=== PATIENT | male | born 1945 | race African-American/Black ===

== ENCOUNTER 2018-05-05 17:57 | Emergency (ER) | payer MEDICARE ==
--- NOTE | 2018-05-05 18:22 | Emergency Department Report ---
ED Trauma HPI - General Chief Complaint: Multiple Trauma Stated Complaint: RT ARM PAIN/FALL OUT TREE Time Seen by Provider: 05/05/18 18:10 Source: patient Exam Limitations: no limitations - History of Present Illness Initial Comments: Patient is 72-year-old male that presents emergency room with complaints of a fall from 12 feet off a ladder. Patient states he lost consciousness for approximately 1 minute. Son is at bedside and confirms the positive LOC. Patient complains of shortness of breath, Abdominal pain, right shoulder pain, right arm pain, right wrist pain, left forearm pain. Patient states the pain is a 78 out of 10. Patient states the pain is better with worse and worse with movement. Patient is ambulatory to the ER. Patient came by POV and ambulated without problems into the emergency room. Patient denies symptoms prior to fall patient just slipped off ladder Occurred: just prior to arrival Severity: severe Pain Location: chest, abdomen, upper extremity Method of Injury: fall Modifying Factors: improves with: movement, rest Loss of Consciousness: brief (seconds) Associated Symptoms (Fall): abdominal pain, shortness of breath, other. denies : chest pain, confusion, dizziness, headache, lightheadedness, muscle spasms, nausea/vomiting, neck pain, ringing in ears, seizures, slurred speech, trouble walking, vision changes Allergies/Adverse Reactions: Allergies penicillin V Allergy (Verified 06/12/16 09:47) Shortness of Breath Home Medications: Ambulatory Orders Acyclovir [Zovirax Tab] 800 mg PO QID #40 tab 06/12/16 Cetirizine HCl [ZyrTEC] 10 mg PO DAILY #15 capsule 06/12/16 predniSONE [Deltasone] 20 mg PO QDAY #5 tab 06/12/16 HYDROcodone/APAP 5-325 [[place] 5-325 mg TAB] 1 each PO Q6HR PRN #15 tablet ED Review of Systems ROS: Stated complaint: RT ARM PAIN/FALL OUT TREE Other details as noted in HPI Constitutional: denies: chills, fever Eyes: denies: eye pain, eye discharge, vision change ENT: denies: ear pain, throat pain Respiratory: shortness of breath. denies: cough, wheezing Cardiovascular: denies: chest pain, palpitations Endocrine: no symptoms reported Gastrointestinal: abdominal pain. denies: nausea, diarrhea Genitourinary: denies: urgency, dysuria Musculoskeletal: denies: back pain, joint swelling, arthralgia Skin: denies: rash, lesions Neurological: denies: headache, weakness, paresthesias Psychiatric: denies: anxiety, depression Hematological/Lymphatic: denies: easy bleeding, easy bruising ED Past Medical Hx - Past Medical History Previous Medical History?: Yes Hx Hypertension: Yes - Surgical History Past Surgical History?: No - Family History Family history: no significant - Social History Smoking Status: Never Smoker Substance Use Type: None - Medications Home Medications: Home Medications Medication Instructions Recorded Confirmed Last Taken Type Acyclovir [Zovirax Tab] 800 mg PO QID #40 tab 06/12/16 Unknown Rx Cetirizine HCl [ZyrTEC] 10 mg PO DAILY #15 capsule 06/12/16 Unknown Rx predniSONE [Deltasone] 20 mg PO QDAY #5 tab 06/12/16 Unknown Rx HYDROcodone/APAP 5-325 [[place] 1 each PO Q6HR PRN #15 tablet 05/05/18 Unknown Rx 5-325 mg TAB] ED Physical Exam - General Limitations: Language Barrier General appearance: alert, in no apparent distress - Head Head exam: Present: atraumatic, normocephalic - Eye Eye exam: Present: normal appearance, PERRL, EOMI Pupils: Present: normal accommodation - ENT ENT exam: Present: mucous membranes moist - Neck Neck exam: Present: normal inspection, tenderness (tenderness noted on neck exam and patient was placed in a c-collar,) - Respiratory Respiratory exam: Present: normal lung sounds bilaterally. Absent: respiratory distress - Cardiovascular Cardiovascular Exam: Present: regular rate, normal rhythm. Absent: systolic murmur, diastolic murmur, rubs, gallop - GI/Abdominal GI/Abdominal exam: Present: soft, tenderness (left upper quadrant tenderness to palpation), normal bowel sounds - Rectal Rectal exam: Present: deferred - Extremities Exam Extremities exam: Present: tenderness (2 right wrist, right shoulder and left forearm) - Back Exam Back exam: Present: normal inspection - Neurological Exam Neurological exam: Present: alert, oriented X3 - Psychiatric Psychiatric exam: Present: normal affect, normal mood - Skin Skin exam: Present: warm, dry, normal color, abrasion (multiple abrasions noted. Abrasions noted on left abdomen and bilateral forearms). Absent: rash ED Course Vital Signs 05/05/18 05/05/18 05/05/18 18:03 18:15 18:30 Temperature 98 F Pulse Rate 69 86 90 Respiratory 18 18 22 Rate Blood Pressure 161/71 Blood Pressure 178/83 173/87 [Left] O2 Sat by Pulse 97 97 97 Oximetry 05/05/18 05/05/18 05/05/18 19:27 19:30 19:46 Temperature Pulse Rate 66 66 71 Respiratory 15 16 18 Rate Blood Pressure 183/78 183/78 165/82 Blood Pressure [Left] O2 Sat by Pulse 95 95 95 Oximetry 05/05/18 05/05/18 05/05/18 20:00 20:16 20:30 Temperature Pulse Rate 68 67 66 Respiratory 16 15 17 Rate Blood Pressure 165/82 171/87 171/87 Blood Pressure [Left] O2 Sat by Pulse 95 94 96 Oximetry 05/05/18 05/05/18 05/05/18 20:46 21:00 21:16 Temperature Pulse Rate 68 72 64 Respiratory 16 13 13 Rate Blood Pressure 161/82 161/82 174/82 Blood Pressure [Left] O2 Sat by Pulse 95 94 94 Oximetry 05/05/18 05/05/18 05/05/18 21:30 21:46 22:00 Temperature Pulse Rate 65 66 Respiratory 15 17 16 Rate Blood Pressure 174/82 163/79 163/79 Blood Pressure [Left] O2 Sat by Pulse 93 93 93 Oximetry 05/05/18 05/05/18 05/05/18 22:16 23:27 23:31 Temperature Pulse Rate 69 65 64 Respiratory 16 15 17 Rate Blood Pressure 146/76 146/76 139/63 Blood Pressure [Left] O2 Sat by Pulse 93 Oximetry 05/06/18 05/06/18 00:00 00:05 Temperature Pulse Rate 64 64 Respiratory 16 17 Rate Blood Pressure 136/75 Blood Pressure 139/63 [Left] O2 Sat by Pulse 100 Oximetry - Reevaluation(s) Reevaluation #1: Due to mechanism of injury and positive LOC will place patient in a c-collar and pans scan the patient. Plain films will also be done. FAST exam done as well and negative. 05/05/18 18:10 Reevaluation #2: Discussed all results with patient and family. Patient will need a right forearm splint and reduction. Reduction done. We'll achieve post reduction film. See procedure note. X-ray done and shows a improved alignment 05/05/18 23:31 - Orthopedic Fracture Reduction Fracture #1 Consent Obtained: verbal consent, written consent, emergent situation Time Out Performed: Yes Side: right Fracture Reduction Location: radius Analgesia: none Technique: direct manipulation Post Reduction X-rays Demonstrate: acceptable reduction Post-Reduction Neuro Exam: intact Post-Reduction Vascular Exam: intact Splint Applied: Yes Patient Tolerated Procedure: well - Orthopedic Splinting/Casting Injury #1 Side: left Upper Extremity Injury Location: forearm Upper Extremity Immobilizer: sling/shoulder immobilize, sugartong splint ED Medical Decision Making - Lab Data Result diagrams: 05/05/18 18:15 05/05/18 18:15 - Radiology Data Radiology results: report reviewed, image reviewed interpreted by me: Alignment improved after splint placement on x-ray. FINAL REPORT EXAM: CT CERVICAL SPINE WO CON HISTORY: fall . pain. loc TECHNIQUE: Axial helical imaging through the cervical spine with sagittal and coronal reformatted images obtained. Comparison: None FINDINGS: There straightening of the normal lordotic curve of the cervical spine. The vertebral heights are maintained. There is loss of height of the disc spaces throughout the cervical spine with relative sparing of the C2-C3 and C7-T1 discs. There is multiple level degenerative facet change. There is multiple level canal and foraminal stenosis secondary to spondylitic change. Visualization detail the contents of the cervical canal limited by artifact. There is no evidence of fracture or subluxation. The paraspinous soft tissues are unremarkable. There is a stent in the left innominate vein. There opacification of the visualized portion the right maxillary sinus. There is evidence of mucoperiosteal change consistent with sequela of chronic sinusitis. IMPRESSION: 1. No evidence of fracture or subluxation. 2. Cervical spondylosis with multiple level canal and foraminal stenosis. 3. Stent in the left innominate vein. 4. Right maxillary sinus disease with evidence of changes of chronic sinusitis. Transcribed By: ED Dictated By: MADELINE FERNANDO MD Electronically Authenticated By: MADELINE FERNANDO MD Signed Date/Time: 05/05/182002 FINAL REPORT EXAM: XR FOREARM BILAT 2V HISTORY: Trauma arm pain, fall from tree TECHNIQUE: Frontal and lateral views of the right and left forearms. Comparison: X-ray right humerus also performed today the the FINDINGS: Right forearm: There is a comminuted, angulated and displaced fracture of the distal radius metaphysis and epiphysis. There appears to be involvement of the articular surface. The ulna styloid is not well visualized. Ulna styloid fracture needs to be considered. Left forearm: There is no evidence of fracture or subluxation. The soft tissues are unremarkable. IMPRESSION: 1. Comminuted, angulated and displaced fracture distal right radius metaphysis and epiphysis that appears to involve the articular surface 2. Right ulna styloid not well visualized. Right ulna styloid fracture needs to be considered. 3. No evidence of fracture or subluxation of the left forearm. Transcribed By: ED Dictated By: MADELINE FERNANDO MD Electronically Authenticated By: MADELINE FERNANDO MD Signed Date/Time: 05/05/181850 FINAL REPORT EXAM: XR HUMERUS 2+V RT HISTORY: Trauma arm pain, fall from tree TECHNIQUE: Frontal and lateral views right humerus Comparison: X-ray right forearm also performed today FINDINGS: There is no evidence of fracture or subluxation. The soft tissues are unremarkable. IMPRESSION: 1. No evidence of fracture or subluxation of the right humerus. Transcribed By: ED Dictated By: MADELINE FERNANDO MD Electronically Authenticated By: MADELINE FERNANDO MD Signed Date/Time: 05/05/181852 FINAL REPORT EXAM: CT HEAD/BRAIN WO CON HISTORY: fall. pain. loc TECHNIQUE: 2.5 millimeter axial images from the skullbase to the vertex. Comparison: None FINDINGS: There is no evidence of an acute intracranial process, intracranial hemorrhage or mass effect. Ventricular size is concordant with the degree of atrophy. There is atherosclerotic vascular calcification of the internal carotid arteries bilaterally at the skullbase. The visualized portions of the orbits, paranasal and mastoid sinuses are notable for near complete opacification of the right maxillary sinus with air-fluid levels. There is mucoperiosteal change consistent with a component of chronic sinusitis. There is increased density of a portion of the contents of the right maxillary sinus. There is no evidence of fracture. IMPRESSION: 1. No evidence of an acute intracranial process, intracranial hemorrhage or mass effect. 2. No evidence of fracture. 3. Right maxillary sinus disease with findings suggestive of acute on chronic sinusitis. Increased density of the contents of the right maxillary sinus can be seen with desiccated secretions, blood products and fungal infection. Transcribed By: ED Dictated By: MADELINE FERNANDO MD Electronically Authenticated By: MADELINE FERNANDO MD Signed Date/Time: 05/05/182105 FINAL REPORT EXAM: CT CHEST WO CON HISTORY: fall pain. loc TECHNIQUE: Axial helical imaging through the chest with sagittal and coronal reformatted images obtained. Comparison: CT abdomen and pelvis also performed today FINDINGS: There is no evidence of infiltrate, pneumothorax or pleural fluid collection. Heart appears to be normal size. There is atherosclerotic vascular calcification of the coronary arteries. The thoracic aorta is normal caliber. There are mildly prominent mediastinal lymph nodes. These are nonspecific in appearance but are most likely inflammatory in nature. The trachea and bronchi are patent. There is a stent in the left innominate vein. The visualized portion the upper abdomen is notable for previous cholecystectomy with surgical clips in the gallbladder fossa and bilateral renal hypodensities that most likely represent cysts. The bony structures are without evidence of fracture. IMPRESSION: 1. No evidence of an acute intrathoracic process nor intrathoracic injury. 2. No evidence of fracture. 3. Stent in the left innominate vein. 4. Mildly prominent mediastinal lymph nodes that are nonspecific in appearance but are most likely inflammatory in nature. Transcribed By: ED Dictated By: MADELINE FERNANDO MD Electronically Authenticated By: MADELINE FERNANDO MD Signed Date/Time: 05/05/182009 FINAL REPORT EXAM: CT ABDOMEN PELVIS WO CON HISTORY: fall pain. loc TECHNIQUE: Axial helical imaging through the abdomen and pelvis with sagittal and coronal reformatted images obtained. Comparison: CT chest also performed today and x-ray right forearm also performed today FINDINGS: The lung bases are without infiltrate, pneumothorax or pleural fluid collection. There is mild intrahepatic biliary dilatation likely secondary to previous cholecystectomy. Surgical clips are demonstrated in the gallbladder fossa. The spleen, pancreas and adrenal glands are unremarkable in appearance. There are bilateral renal hypodensities. The Hounsfield units are most consistent with cysts. The kidneys are otherwise unremarkable. There is moderate distention of the stomach. There is a moderate amount of stool throughout the colon. The bowel is otherwise normal caliber. The appendix is normal caliber. There is no evidence of pneumoperitoneum or free fluid. The abdominal aorta is normal caliber. There is no evidence of pathologic intra-abdominal adenopathy by CT size criteria. The urinary bladder is moderately distended but otherwise unremarkable. The prostate gland is enlarged with maximal axial dimension of 4.5 centimeters. The bony structures are notable for degenerative disc and endplate change at the L4-L5 level and degenerative facet change at the L5-S1 level on the left. There is evidence of a fracture of the distal right forearm as demonstrated on the material mixer view. There is no other evidence of fracture. IMPRESSION: 1. No evidence of an acute intra-abdominal process nor intra-abdominal injury. 2. Moderate amount of stool throughout the colon. 3. Hypodensities both kidneys. Probable cysts. 4. Enlarged prostate gland. 5. Status post cholecystectomy. 6. Right forearm fracture demonstrated on the material mixer view. No other evidence of fracture. Transcribed By: ED Dictated By: MADELINE FERNANDO MD Electronically Authenticated By: MADELINE FERNANDO MD Signed Date/Time: 05/05/182023 FINAL REPORT EXAM: XR FOREARM RT HISTORY: splint placement TECHNIQUE: Lateral view of the elbow, forearm and wrist. Comparison: X-ray right forearm performed earlier today. FINDINGS: There appears to be improved alignment of the comminuted distal radius fracture. The ulna styloid fracture is now visualized. The forearm is maintained in a splint. IMPRESSION: 1. Improved alignment of the fracture fragments of the distal radius fracture. 2. The ulnar fracture is now visualized. Transcribed By: ED Dictated By: MADELINE FERNANDO MD Electronically Authenticated By: MADELINE FERNANDO MD Signed Date/Time: 05/05/18 8910 - Medical Decision Making Patient is a 72-year-old male that presented to the emergency room with a fall with brief LOC. Patient had complaints of left forearm pain, right forearm pain , right shoulder pain, abdominal pain and rib pain. Patient had multiple CTs and plain films all CTs were negative. Right forearm plain film showed a distal radial fracture. Discussed all results with patient. Patient given discharge instructions. Patient given return to ER instructions. Family and patient voiced understanding. Patient also given instructions on how to take medications. - Differential Diagnosis trauma. Fall. Fracture. Contusion. LOC. head injury Critical Care Time: Yes Critical care attestation.: If time is entered above; I have spent that time in minutes in the direct care of this critically ill patient, excluding procedure time. Critical Care Time: 45 minutes ED Disposition Clinical Impression: Head injury, closed, with brief LOC, Right forearm pain, Right wrist pain, Left forearm pain, Shortness of breath, Abrasions of multiple sites Fall Qualifiers: Encounter type: initial encounter Qualified Code(s): W19.XXXA - Unspecified fall, initial encounter Right shoulder pain Qualifiers: Chronicity: acute Qualified Code(s): M25.511 - Pain in right shoulder Abdominal pain Qualifiers: Abdominal location: left upper quadrant Qualified Code(s): R10.12 - Left upper quadrant pain Right radial fracture Qualifiers: Encounter type: initial encounter Radius location: distal Fracture type: closed Fracture morphology: other intra-articular Qualified Code(s): S52.571A - Other intraarticular fracture of lower end of right radius, initial encounter for closed fracture Concussion Qualifiers: Encounter type: initial encounter Loss of consciousness presence/duration: with LOC of 30 min or less Qualified Code(s): S06.0X1A - Concussion with loss of consciousness of 30 minutes or less, initial encounter Disposition: TO HOME OR SELFCARE Is pt being admited?: No Does the pt Need Aspirin: No Condition: Stable Instructions: Wrist Injury (ED), Wrist Fracture in Adults (ED), Concussion (ED) , Fall Prevention for Older Adults (ED), Minor Head Injury (ED) Additional Instructions: Patient to follow up with primary care in 2-3 days. Patient to follow up with orthopedist in the morning. Patient was given Dr. Maher's information. Patient to return to the ER if condition worsens. Patient to take meds as directed. Patient take Tylenol or ibuprofen when necessary for pain. Patient to rest. No physical activity until cleared by primary care and orthopedics. Prescriptions: HYDROcodone/APAP 5-325 [[place] 5-325 mg TAB] 1 each PO Q6HR PRN #15 tablet PRN Reason: Pain Referrals: PRIMARY CARE, [Primary Care Provider] - 2-3 Days ALVARADO MAHER MD [Staff Physician] - 24 Hours Time of Disposition: 23:41
[2018-05-05 18:39] LABS: Basophils # (Auto) 0.1 K/mm3 (0.0-0.1); Basophils % (Auto) 0.6 % (0.0-1.8); Eosinophils % (Auto) 0.2 % (0.0-4.3); Hematocrit 42.7 % (35.5-45.6); Hemoglobin 14.7 gm/dl (11.8-15.2); Lymphocytes # (Auto) 2.7 K/mm3 (1.2-5.4); Lymphocytes % (Auto) 23.7 % (13.4-35.0); Mean Corpuscular HGB Conc 34 % (32-34); Mean Corpuscular Hemoglobin 33 pg (28-32); Mean Corpuscular Volume 97 fl (84-94); Monocytes # (Auto) 0.6 K/mm3 (0.0-0.8); Monocytes % (Auto) 5.7 % (0.0-7.3); Platelet Count 203 K/mm3 (140-440); Red Blood Count 4.41 M/mm3 (3.65-5.03); Red Cell Distribution Width 12.9 % (13.2-15.2)
--- NOTE | 2018-05-05 18:53 | XRay Report ---
FINAL REPORT EXAM: XR FOREARM BILAT 2V HISTORY: Trauma arm pain, fall from tree TECHNIQUE: Frontal and lateral views of the right and left forearms. Comparison: X-ray right humerus also performed today the the FINDINGS: Right forearm: There is a comminuted, angulated and displaced fracture of the distal radius metaphysis and epiphysis. There appears to be involvement of the articular surface. The ulna styloid is not well visualized. Ulna styloid fracture needs to be considered. Left forearm: There is no evidence of fracture or subluxation. The soft tissues are unremarkable. IMPRESSION: 1. Comminuted, angulated and displaced fracture distal right radius metaphysis and epiphysis that appears to involve the articular surface 2. Right ulna styloid not well visualized. Right ulna styloid fracture needs to be considered. 3. No evidence of fracture or subluxation of the left forearm.
--- NOTE | 2018-05-05 18:54 | XRay Report ---
FINAL REPORT EXAM: XR HUMERUS 2+V RT HISTORY: Trauma arm pain, fall from tree TECHNIQUE: Frontal and lateral views right humerus Comparison: X-ray right forearm also performed today FINDINGS: There is no evidence of fracture or subluxation. The soft tissues are unremarkable. IMPRESSION: 1. No evidence of fracture or subluxation of the right humerus.
[2018-05-05 18:59] LABS: Alanine Aminotransferase 29 units/L (7-56); Albumin 4.6 g/dL (3.9-5); BUN/Creatinine Ratio 23; Blood Urea Nitrogen 18 mg/dL (9-20); Calcium 9.5 mg/dL (8.4-10.2); Hemolysis Index 42
[2018-05-05 19:05] LABS: Amorphous Crystals,Urine Few; Bilirubin,Urine NEG (Negative); Blood,Urine SM (Negative); Color,Urine Yellow (Yellow); Mucus,Urine FEW /HPF; Protein,Urine <15 mg/dL mg/dL (Negative); Urobilinogen,Urine < 2.0 mg/dL (<2.0)
--- NOTE | 2018-05-05 20:05 | Cat Scan Report ---
FINAL REPORT EXAM: CT CERVICAL SPINE WO CON HISTORY: fall . pain. loc TECHNIQUE: Axial helical imaging through the cervical spine with sagittal and coronal reformatted images obtained. Comparison: None FINDINGS: There straightening of the normal lordotic curve of the cervical spine. The vertebral heights are maintained. There is loss of height of the disc spaces throughout the cervical spine with relative sparing of the C2-C3 and C7-T1 discs. There is multiple level degenerative facet change. There is multiple level canal and foraminal stenosis secondary to spondylitic change. Visualization detail the contents of the cervical canal limited by artifact. There is no evidence of fracture or subluxation. The paraspinous soft tissues are unremarkable. There is a stent in the left innominate vein. There opacification of the visualized portion the right maxillary sinus. There is evidence of mucoperiosteal change consistent with sequela of chronic sinusitis. IMPRESSION: 1. No evidence of fracture or subluxation. 2. Cervical spondylosis with multiple level canal and foraminal stenosis. 3. Stent in the left innominate vein. 4. Right maxillary sinus disease with evidence of changes of chronic sinusitis.
--- NOTE | 2018-05-05 20:11 | Cat Scan Report ---
FINAL REPORT EXAM: CT CHEST WO CON HISTORY: fall pain. loc TECHNIQUE: Axial helical imaging through the chest with sagittal and coronal reformatted images obtained. Comparison: CT abdomen and pelvis also performed today FINDINGS: There is no evidence of infiltrate, pneumothorax or pleural fluid collection. Heart appears to be normal size. There is atherosclerotic vascular calcification of the coronary arteries. The thoracic aorta is normal caliber. There are mildly prominent mediastinal lymph nodes. These are nonspecific in appearance but are most likely inflammatory in nature. The trachea and bronchi are patent. There is a stent in the left innominate vein. The visualized portion the upper abdomen is notable for previous cholecystectomy with surgical clips in the gallbladder fossa and bilateral renal hypodensities that most likely represent cysts. The bony structures are without evidence of fracture. IMPRESSION: 1. No evidence of an acute intrathoracic process nor intrathoracic injury. 2. No evidence of fracture. 3. Stent in the left innominate vein. 4. Mildly prominent mediastinal lymph nodes that are nonspecific in appearance but are most likely inflammatory in nature.
--- NOTE | 2018-05-05 20:25 | Cat Scan Report ---
FINAL REPORT EXAM: CT ABDOMEN PELVIS WO CON HISTORY: fall pain. loc TECHNIQUE: Axial helical imaging through the abdomen and pelvis with sagittal and coronal reformatted images obtained. Comparison: CT chest also performed today and x-ray right forearm also performed today FINDINGS: The lung bases are without infiltrate, pneumothorax or pleural fluid collection. There is mild intrahepatic biliary dilatation likely secondary to previous cholecystectomy. Surgical clips are demonstrated in the gallbladder fossa. The spleen, pancreas and adrenal glands are unremarkable in appearance. There are bilateral renal hypodensities. The Hounsfield units are most consistent with cysts. The kidneys are otherwise unremarkable. There is moderate distention of the stomach. There is a moderate amount of stool throughout the colon. The bowel is otherwise normal caliber. The appendix is normal caliber. There is no evidence of pneumoperitoneum or free fluid. The abdominal aorta is normal caliber. There is no evidence of pathologic intra-abdominal adenopathy by CT size criteria. The urinary bladder is moderately distended but otherwise unremarkable. The prostate gland is enlarged with maximal axial dimension of 4.5 centimeters. The bony structures are notable for degenerative disc and endplate change at the L4-L5 level and degenerative facet change at the L5-S1 level on the left. There is evidence of a fracture of the distal right forearm as demonstrated on the trading specialist view. There is no other evidence of fracture. IMPRESSION: 1. No evidence of an acute intra-abdominal process nor intra-abdominal injury. 2. Moderate amount of stool throughout the colon. 3. Hypodensities both kidneys. Probable cysts. 4. Enlarged prostate gland. 5. Status post cholecystectomy. 6. Right forearm fracture demonstrated on the trading specialist view. No other evidence of fracture.
--- NOTE | 2018-05-05 21:07 | Cat Scan Report ---
FINAL REPORT EXAM: CT HEAD/BRAIN WO CON HISTORY: fall. pain. loc TECHNIQUE: 2.5 millimeter axial images from the skullbase to the vertex. Comparison: None FINDINGS: There is no evidence of an acute intracranial process, intracranial hemorrhage or mass effect. Ventricular size is concordant with the degree of atrophy. There is atherosclerotic vascular calcification of the internal carotid arteries bilaterally at the skullbase. The visualized portions of the orbits, paranasal and mastoid sinuses are notable for near complete opacification of the right maxillary sinus with air-fluid levels. There is mucoperiosteal change consistent with a component of chronic sinusitis. There is increased density of a portion of the contents of the right maxillary sinus. There is no evidence of fracture. IMPRESSION: 1. No evidence of an acute intracranial process, intracranial hemorrhage or mass effect. 2. No evidence of fracture. 3. Right maxillary sinus disease with findings suggestive of acute on chronic sinusitis. Increased density of the contents of the right maxillary sinus can be seen with desiccated secretions, blood products and fungal infection.
[2018-05-05] MEDS ORDERED: DILAUDID ONE (22:15)
[2018-05-05] MEDS ORDERED: DILAUDID IV ONE (22:19)
[2018-05-05] MEDS ORDERED: BENADRYL ONE (22:32)
[2018-05-05] MEDS ORDERED: BENADRYL IV ONE (22:44)
[2018-05-05] MEDS ORDERED: ZOFRAN IV ONE (23:49)
[2018-05-05] MEDS ORDERED: ZOFRAN ONE (23:58)
--- NOTE | 2018-05-06 00:01 | XRay Report ---
FINAL REPORT EXAM: XR FOREARM RT HISTORY: splint placement TECHNIQUE: Lateral view of the elbow, forearm and wrist. Comparison: X-ray right forearm performed earlier today. FINDINGS: There appears to be improved alignment of the comminuted distal radius fracture. The ulna styloid fracture is now visualized. The forearm is maintained in a splint. IMPRESSION: 1. Improved alignment of the fracture fragments of the distal radius fracture. 2. The ulnar fracture is now visualized.
[2018-05-06 00:29] VITALS: BP 139/63
== END 2018-05-06 00:05 | disposition home or self-care (01) ==
LOC: ED 17:57
DX: S06.0X1A Concussion with loss of consciousness of 30 minutes or less, initial encounter (principal); S52.571A Other intraarticular fracture of lower end of right radius, initial encounter for closed fracture; S30.811A Abrasion of abdominal wall, initial encounter; S50.812A Abrasion of left forearm, initial encounter; S50.811A Abrasion of right forearm, initial encounter; I10 Essential (primary) hypertension; Z88.0 Allergy status to penicillin; W11.XXXA Fall on and from ladder, initial encounter; Y93.89 Activity, other specified; Y92.89 Other specified places as the place of occurrence of the external cause; Y99.8 Other external cause status
CPT/HCPCS: 25605; 29105; 36415; 70450; 71250; 72125; 73060; 73090; 74176; 80053; 81001; 83615; 85025; 86850; 86900; 86901; 96374; 96375; 99291; J1170; J1200; J2405